=== PATIENT | female | born 1980 | race Caucasian/White ===

== ENCOUNTER 2016-12-06 10:17 | Emergency (ER) | payer MEDICAID ==
[~2016-12-06] VITALS: Ht 172.7 cm; Wt 112.4 kg
[2016-12-06 11:36] LABS: BLOOD UREA NITROGEN 9 mg/dL (7-18)
[2016-12-06 11:55] VITALS: BP 132/87
== END 2016-12-06 12:37 | disposition home or self-care (01) ==
LOC: ED 12:34
DX: R22.1 Localized swelling, mass and lump, neck (principal); J45.909 Unspecified asthma, uncomplicated; Z91.040 Latex allergy status
CPT/HCPCS: 36415; 70360; 71010; 80048; 82040; 82150; 85025; 86308; 86677

== ENCOUNTER → 2017-01-24 | Outpatient (CLI) | payer MEDICAID | END | disposition home or self-care (01) | LOC: CFH 12:27 | PROVIDERS: ATTEND Nurse Practitioner | DX: R22.1 Localized swelling, mass and lump, neck (principal) | CPT/HCPCS: 76536 ==

== ENCOUNTER 2017-04-10 08:10 | Emergency (ER) | payer MEDICAID ==
[~2017-04-10] VITALS: Ht 172.7 cm; Wt 107.0 kg
[2017-04-10] MEDS ORDERED: ESTR10TA9 PO (09:00)
[2017-04-10] MEDS ORDERED: HYDROcodone/APAP 5/325 TABLET PO PRN (09:00)
[2017-04-10] MEDS ORDERED: PHEN37.53 PO (09:00)
[2017-04-10] MEDS ORDERED: HYDROcodone/APAP 5/325 TABLET ONE (09:01)
[2017-04-10 09:25] VITALS: BP 128/84
== END 2017-04-10 09:27 | disposition home or self-care (01) ==
LOC: ED 09:14
DX: S50.01XA Contusion of right elbow, initial encounter (principal); J45.909 Unspecified asthma, uncomplicated; W01.0XXA Fall on same level from slipping, tripping and stumbling without subsequent striking against object, initial encounter; Y93.89 Activity, other specified; Y92.488 Other paved roadways as the place of occurrence of the external cause; Y99.8 Other external cause status

== ENCOUNTER 2017-10-07 14:17 | Emergency (ER) | payer MEDICAID ==
[~2017-10-07] VITALS: Ht 172.7 cm; Wt 104.3 kg
[~2017-10-07 14:17] MED LIST: ESTR10TA9 PO; PHEN37.53 PO
[2017-10-07 14:30] VITALS: BP 126/88
[2017-10-07] MEDS ORDERED: DIAZEPAM 5 MG TABLET PO ONE (15:00)
[2017-10-07] MEDS ORDERED: ONDANSETRON ODT 4 MG PO ONE (15:00)
[2017-10-07] MEDS ORDERED: KETOROLAC 30 MG/1 ML IM ONE (15:00)
[2017-10-07] MEDS ORDERED: DIAZEPAM 5 MG TABLET ONE (15:09)
[2017-10-07] MEDS ORDERED: ONDANSETRON ODT 4 MG ONE (15:36)
[2017-10-07] MEDS ORDERED: KETOROLAC 30 MG/1 ML ONE (15:36)
== END 2017-10-07 17:27 | disposition home or self-care (01) ==
LOC: ED 17:11
DX: S06.0X0A Concussion without loss of consciousness, initial encounter (principal); S16.1XXA Strain of muscle, fascia and tendon at neck level, initial encounter; S39.012A Strain of muscle, fascia and tendon of lower back, initial encounter; S29.012A Strain of muscle and tendon of back wall of thorax, initial encounter; V49.59XA Passenger injured in collision with other motor vehicles in traffic accident, initial encounter; Y93.89 Activity, other specified; Y92.89 Other specified places as the place of occurrence of the external cause; Y99.8 Other external cause status; Z90.710 Acquired absence of both cervix and uterus
CPT/HCPCS: 70450; 72072; 72110; 72125; 96372; 99284; J1885; Q0162